=== PATIENT | male | born 1990 | race Caucasian/White ===

== ENCOUNTER 2020-05-18 21:26 | Emergency (ER) | payer OTHER, SELFPAY ==
[2020-05-18 21:26] VITALS: BP 146/88; PULSE 96; RESP 16; TEMP 37.2; O2SAT 98
[2020-05-18] MEDS: TETANUS,DIPHTHERIA,AC PERTUSSIS ADULT 0.5 ML (ADACEL) IM (21:55)
--- NOTE | 2020-05-18 21:55 | ED.WOUNDLAC ---
HPI - Wound/Laceration General Stated Complaint: left hand cut Source: patient Mode of arrival: ambulatory History of Present Illness HPI narrative: this is a 30-year-old male that presents with a avulsion injury to his left hand in the thenar region that occurred earlier today while using a Mandolin, currently having some bleeding it is oozing, no nerves are exposed patient is complaining of pain and tenderness with a good strong brisk radial pulse on the left. No numbness or tingling in his hand or fingers. There is about 4cm in diameter. Onset (ago): hour(s) Extremity Location: Left: hand ( avulsion injury) Place: work Context: accidental Associated symptoms: pain Treatments prior to arrival: bandage Review of Systems Review of Systems: All systems reviewed & are unremarkable except as noted in HPI and below PMFSH Past Medical History Medical History Patient denies medical problems Exam Const: General: no acute distress and alert Orientation/consciousness: patient oriented x3 HENMT: Head: normal to inspection Eyes: Conjunctivae: conjunctivae normal Pupils: Equal, round and reactive pupils present Neck: Neck: normal visual inspection Chest: Chest palpation & inspection: normal inspection of the chest Resp: Effort & Inspection: normal respiratory effort Cardio: Rate: regular rate Rhythm: regular rhythm GI: GI Palp: Yes Soft to palpation Percussion: Yes normal to percussion Back/Spine/Pelvis: Back: no CVA tenderness Skin: General skin exam: normal color Other: has an avulsion injury to his left hand in the thenar region measures approximately 4cm in diameter no nerves are exposed does show some of the fat pad, radial pulses intact currently losing blood but not spurting blood. Course Course Emergency Course: Patient concerned that it may need a skin graft, talked to patient and will give him information on plastic surgery to have the wound evaluated. will update patient with his tetanus and will wrap with Surgicel and gauze. Procedures Laceration Laceration 1: Date: 05/18/20 Time: 22:04 Site: hand Side (If applicable): left Size (cm): 4 Description: clean and other ( Avulsion injury, no sutures needed) Pre-repair: wound explored, irrigated and irrigated extensively ====== Skin Level ====== Skin layer closed with: other ( Surgicel placed) ====== Subcutaneous Layer ====== ====== Muscle Layer ====== ====== Tendon Layer ====== Critical Care Time Critical Care Time Critical Care Time: No Discharge Plan Discharge Clinical Impression: Avulsion injury Patient Disposition: Home, Self-Care Condition: Stable Instructions: Antibiotic Form, Skin Avulsion (ED) Additional Instructions: advised to keep area wrapped and advised follow-up with primary care physician and to call plastic surgery on Wednesday for evaluation. Follow-up/Referrals: Jareth,Margarito Sarah MD [Primary Care Provider] - Time of Disposition: 22:03
[2020-05-18 22:15] VITALS: RESP 14; O2SAT 100
== END 2020-05-18 22:15 | disposition home or self-care (01) ==
PROVIDERS: Emergency Provider Emergency Medicine; PCP Family Medicine
DX: S61.412A Laceration without foreign body of left hand, initial encounter (principal); W45.8XXA Other foreign body or object entering through skin, initial encounter
CPT/HCPCS: 12002; 90471; 90715; 99282